=== PATIENT | male | born 2000 | race Two or more races ===

== ENCOUNTER 2022-11-27 04:05 | Emergency (ER) | payer SELFPAY ==
[2022-11-27] MEDS ORDERED: Fluorescein Opthalmic Strip ONE (04:49)
[2022-11-27] MEDS ORDERED: Ibuprofen 200 MG TAB ONE (04:49)
[2022-11-27] MEDS ORDERED: Tetracaine 0.5% PF 4 ML BOT ONE (04:49)
[2022-11-27] MEDS ORDERED: Erythromycin Base 0.5% Oint 1 GM TUBE ONE (06:32)
== END 2022-11-27 06:42 | disposition home or self-care (01) ==
LOC: CSHERS 04:05
DX: H10.213 Acute toxic conjunctivitis, bilateral (principal); F17.290 Nicotine dependence, other tobacco product, uncomplicated; X58.XXXA Exposure to other specified factors, initial encounter
CPT/HCPCS: 99283